=== PATIENT | male | born 1985 | race Caucasian/White ===

== ENCOUNTER → 2023-10-10 09:53 | Outpatient (REF) | payer BC, SELFPAY | LOC: RAD 09:53 | PROVIDERS: ATTENDING PHYSICIAN Internal Medicine; FAMILY PHYSICIAN Internal Medicine | DX: K56.609 Unspecified intestinal obstruction, unspecified as to partial versus complete obstruction (principal) | CPT/HCPCS: 74246; 74248 ==

== ENCOUNTER 2024-06-13 12:49 | Emergency (ER) | payer BC, SELFPAY ==
[2024-06-13 12:56] VITALS: BP 140/94
[2024-06-13 13:20] LABS: % Basophils 0.9 % (0-2); % Eosinophils 1.7 % (0-6); % Immature Granulocytes 0.3 % (0-0.5); % Lymphocytes 25.9 % (20.5-51.1); % Neutrophils 63.2 % (42.2-75.2); Absolute Basophils 0.1 10^3/uL (0-0.2); Absolute Eosinophils 0.1 10^3/uL (0-0.7); Absolute Lymphocytes 1.8 10^3/uL (1.2-3.4); Absolute Monocytes 0.6 10^3/uL (0.1-0.6); Absolute Neutrophils 4.3 10^3/uL (1.4-6.5); Hematocrit 43.3 % (39.0-52.0); Hemoglobin 15.6 g/dL (13.0-18.0); Mean Corpuscular Hgb 29.9 pg (27.0-31.0); Mean Platelet Volume 11.2 fL (7.4-10.4); Nucleated Red Blood Cells % 0 % (-); Platelet Count 208 10^3/uL (130-400); Red Blood Cell Count 5.22 10^6/uL (4.70-6.10); Red Cell Dist. Width 12.3 % (11.5-14.5); White Blood Cell Count 6.9 10^3/uL (4.8-10.8)
[2024-06-13 13:30] LABS: ALT (SGPT) 32 U/L (0-50); AST (SGOT) 33 U/L (17-59); Alkaline Phosphatase 60 U/L (38-126); Blood Urea Nitrogen 34 mg/dl (9-20); Calcium 9.9 mg/dl (8.4-10.2); Carbon Dioxide 21 mmol/L (22-30); Chloride 104 mmol/L (98-107); Glucose 90 mg/dl (70-99); Potassium 4.3 mmol/L (3.5-5.1); Sodium 143 mmol/L (135-145); Total Bilirubin 1.6 mg/dl (0.2-1.3); Total Protein 7.2 g/dl (6.3-8.2); eGFR > 60.00
[2024-06-13 13:48] LABS: Troponin I 0.025 ng/ml
[2024-06-13 14:00] VITALS: BP 118/91; BMI 22.7
--- NOTE | 2024-06-13 14:01 | EDRN ---
[facility] in room w/ pt.
--- NOTE | 2024-06-13 14:17 | ED.GENMED ---
History of Present Illness
General
Chief Complaint: Chest Pain
Source: patient
Exam Limitations: none
Time Seen by Provider: 06/13/24 13:43
Nursing documentation reviewed up to this point in time: agreed with
History of Present Illness
History of Present Illness:
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 He states he has had 3 days of intermittent pains 'up-and-down my sternum' worse with deep
breaths, no aggravating or relieving factors. No known injury or overuse. He states he has also had intermittent pains alternating from from his left clavicle shooting down to his left mid rib area with similar pains on the right clavicle shooting
down to his right rib areas that occur only at night mainly when he is laying on the couch on his back. He denies any of the symptoms at this time. He states the pains can last anywhere from a few minutes to an hour.
He has had no associated symptoms such as sweating, lightheadedness, N/V, abdominal pain or SOB. No recent travel.
Past History
Past History
ED Past Medical History: Hypercholesterolemia, NIDDM and Other (hirshprung's)
ED Past Surgical History: Bowel resection
Social History
Tobacco: Non-smoker
Alcohol: None
Drug: None
Personal:
Living: with family
Employment: Employed
Family History
Family History: Negative Early CAD or Sudden
Review of Systems
Review of Systems
Allergies reviewed?: Yes
All Other Systems: ROS reviewed and negative except as documented in HPI and ROS
Constitutional: Denies fever
Respiratory: Denies cough or trouble breathing
Cardiac: Reports chest pain; Denies diaphoresis, palpitations or syncope
ABD/GI: Denies abdominal pain or nausea
Musculoskeletal: Reports other (sternal chest pain, intermittent pain bilateral clavicles radiating to ribs )
Skin: Reports no symptoms
Neurological: Reports no symptoms
Phy Exam
Physical Exam
Physical Exam:
GENERAL: No acute distress. A&Ox3.
CONSTITUTIONAL: Afebrile.
EYES: Clear, conjunctivae normal
Neck: Supple
ENMT: moist mucus membranes, Pharynx nl
RESPIRATORY: Regular respirations, nonlabored, lungs clear.
CARDIOVASCULAR: Regular rate and rhythm, no murmurs, no rubs.
GI: Soft, nontender, normal BS
MUSCULOSKELETAL: Unable to reproduce chest pain/rib pain with palpation or compression of ribs. Moves with ease. Well perfused.
SKIN: Warm, dry, pink
PSYCH: Normal mood and affect. Well kept, interactive and appropriate
NEUROLOGIC: Awake, alert and oriented. No focal neurological deficits
Scores
Heart Score for Chest Pain Patients
STEMI patient?: Not applicable
Course
Orders/Labs/Results
Orders:
Orders
06/13/24 12:50
ECG [Electrocardiogram (*1)] Urgent
Reason for Study: Chest Pain
EKG- Treatment ONCE
06/13/24 12:58
CR Chest - 2 Views Urgent
Comment:
Reason For Exam: cough
06/13/24 13:02
Complete Blood Count/With Diff Urgent
Comprehensive Metabolic Panel Urgent
Troponin I Urgent
Abnormal Lab Results
06/13/24
13:02
MPV 11.2 H fL
(7.4-10.4)
Carbon Dioxide 21 L mmol/L
(22-30)
BUN 34 H mg/dl
(9-20)
Total Bilirubin 1.6 H mg/dl
(0.2-1.3)
06/13/24 13:02
06/13/24 13:02
Vital Signs
Initial and Last Documented VS:
Initial Vital Signs
Temp Pulse Resp BP Pulse Ox
98.4 F 91 18 140/94 98
06/13/24 12:56 06/13/24 12:56 06/13/24 12:56 06/13/24 12:56 06/13/24 12:56
Last Documented Vital Signs
Temp Pulse Resp BP Pulse Ox
98.4 F 94 8 118/91 93
06/13/24 12:56 06/13/24 14:00 06/13/24 14:00 06/13/24 14:00 06/13/24 14:00
MDM/Problems Addressed
Differential Diagnosis Includes:
ACS ,MS, PE GERD, musculoskeletal
MDM/Problems Addressed:
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 He states he has had 3 days of intermittent pains 'up-and-down my sternum' worse with deep
breaths, no aggravating or relieving factors. No known injury or overuse. He states he has also had intermittent pains alternating from from his left clavicle shooting down to his left mid rib area with similar pains on the right clavicle shooting
down to his right rib areas that occur only at night mainly when he is laying on the couch on his back. He denies any of the symptoms at this time. He states the pains can last anywhere from a few minutes to an hour.
He has had no associated symptoms such as sweating, lightheadedness, N/V, abdominal pain or SOB. No recent travel.
Afebrile, NAD
2:00 PM:
CBC normal
CMP with no clinically significant abnormality
Troponin normal
EKG sinus tach with a heart rate of 102. Bedside monitor now showing normal sinus rhythm with a heart rate of 88 now
No risk factors for PE
No indication of heart damage, MS.
Referred to cardiac hotline
*Critical Care Note
Total Time (30-74mins, 75-104mins- exclusive of procedures): Not Applicable
ED Attending Note
-
Portions of this chart may have been created with voice recognition software.� Occasional wrong word or��sound alike� substitutions may have occurred due to the inherent limitations of voice recognition software.
Discharge Plan
Departure
Patient Disposition: Home (Routine Discharge)
Date of Disposition: 06/13/24
Time of Disposition: 14:12
Patient with high blood pressure during this ER visit?: No
Condition: Good
Discharge Problem:
Atypical chest pain
Instructions: Acid Reflux and GERD in Adults (DC), Chest Pain CBC Follow Up
Prescriptions:
New
pantoprazole 40 mg tablet,delayed release (DR/EC)
40 mg PO DAILY Qty: 20 0RF
No Action
atorvastatin [Lipitor] 10 mg Tablet
10 mg PO DAILY
Jardiance 10 mg Tablet
10 mg PO DAILY
simethicone [Gas-X Extra Strength] 125 mg Capsule
250 mg PO BIDPRN PRN (Reason: gas)
Referrals:
Kacey Sharp MD [Family Provider] -
Activity Restrictions/Additional Instructions:
As we discussed, your workup here today shows no sign of a heart attack.
I sent your information to [facility] cardiology and someone should be contacting you within the next few days to set up an appointment for more thorough cardiac evaluation.
Return here immediately for worsening symptoms or chest pain associated with breaking out in a sweat, nausea or vomiting, feeling lightheaded or feeling sicker in any way
I sent a prescription to your pharmacy for pantoprazole to use for possible acid reflux/indigestion to take to see if it helps.
Interventions
Interventions:
*Risk Screen - Suicide Last Done: 06/13/24 12:56
*General Assessment Last Done: 06/13/24 12:56
*Neglect/Abuse Screening Last Done: 06/13/24 12:56
ED- Fall Risk Assessment Last Done: 06/13/24 14:00
*ED COVID-19 Vaccine History Last Done: 06/13/24 14:00
*Nursing Disposition Last Done: 06/13/24 14:39
ED- Cardiac Assessment Last Done: 06/13/24 14:00
Discharge Date and Time
Discharge Date/Time: 06/13/24 14:39
Print Language: UKRAINIAN
== END 2024-06-13 14:39 | disposition home or self-care (01) ==
LOC: EMR 12:49
PROVIDERS: Emergency Medicine; EMERGENCY PHYSICIAN Emergency Medicine; FAMILY PHYSICIAN Internal Medicine
DX: R07.89 Other chest pain (principal); R07.81 Pleurodynia; R00.2 Palpitations; E11.9 Type 2 diabetes mellitus without complications; E78.00 Pure hypercholesterolemia, unspecified; Q43.1 Hirschsprung's disease; Z79.84 Long term (current) use of oral hypoglycemic drugs; Z98.0 Intestinal bypass and anastomosis status
CPT/HCPCS: 99283; 71046; 80053; 84484; 85025; 93005

== ENCOUNTER 2024-10-28 11:29 | Outpatient (RCR) | payer BC, SELFPAY | END 2024-10-28 23:59 | disposition home or self-care (01) | LOC: RPT 11:29 | PROVIDERS: ATTENDING PHYSICIAN Student in an Organized Health Care Education/Training Program; FAMILY PHYSICIAN Internal Medicine | DX: K59.00 Constipation, unspecified (principal); K59.02 Outlet dysfunction constipation; Z73.6 Limitation of activities due to disability | CPT/HCPCS: 97110; 97161; 97530 ==

== ENCOUNTER 2024-11-24 12:07 | Outpatient (RCR) | payer BC, SELFPAY | END 2024-11-24 23:59 | disposition home or self-care (01) | LOC: RPT 12:07 | PROVIDERS: ATTENDING PHYSICIAN Student in an Organized Health Care Education/Training Program; FAMILY PHYSICIAN Internal Medicine | DX: K59.00 Constipation, unspecified (principal); K59.02 Outlet dysfunction constipation (principal); Z73.6 Limitation of activities due to disability; M62.81 Muscle weakness (generalized) | CPT/HCPCS: 97110; 97112; 97140; 97530 ==

== ENCOUNTER 2024-12-25 15:15 | Outpatient (RCR) | payer BC, SELFPAY | END 2024-12-25 23:59 | disposition home or self-care (01) | LOC: RPT 15:15 | PROVIDERS: ATTENDING PHYSICIAN Student in an Organized Health Care Education/Training Program; FAMILY PHYSICIAN Internal Medicine | DX: K59.00 Constipation, unspecified (principal); K59.02 Outlet dysfunction constipation; Z73.6 Limitation of activities due to disability; M62.81 Muscle weakness (generalized) | CPT/HCPCS: 97110; 97112; 97140 ==

== ENCOUNTER → 2025-07-16 16:35 | Outpatient (REF) | payer BC, SELFPAY | LOC: RAD 16:35 | PROVIDERS: ATTENDING PHYSICIAN Internal Medicine | DX: M79.671 Pain in right foot (principal); M79.672 Pain in left foot | CPT/HCPCS: 73630 ==